=== PATIENT | male | born 1965 | race Caucasian/White ===

== ENCOUNTER 2018-12-03 05:45 | Day surgery (SDC) | payer OTHER ==
[~2018-12-03] VITALS: Ht 167.6 cm; Wt 90.7 kg
--- NOTE | ~2018-12-03 | OR ---
[facility] [address] [place], [place] [address] Draft DATE OF OPERATION: 12/03/2018 SURGEON: Solomon Harrison MD PREOPERATIVE DIAGNOSIS: Medial meniscal tear, right knee. POSTOPERATIVE DIAGNOSES: 1. Medial meniscal tear, right knee. 2. Chondral flap/fracture off the weightbearing portion of the medial femoral condyle. 3. Early calcium pyrophosphate deposition disease. PROCEDURE PERFORMED: Knee arthroscopy with a limited femoral chondroplasty and partial medial meniscectomy. ANESTHESIA: General. SPECIMENS/COMPLICATIONS: There were no specimens or complications. TOURNIQUET TIME: About 30 minutes. WHAT WAS DONE: The patient was taken to the operating room. After anesthesia was induced and airway secured, the patient was positioned, prepped and draped in a routine sterile fashion. The leg was exsanguinated with an Esmarch bandage. A pneumatic tourniquet was inflated to 300 mmHg pressure. The outflow cannula was placed, Super Roll laterally, and the arthroscope was placed through the standard anterolateral portal. Diagnostic arthroscopy of the suprapatellar pouch did not reveal any abnormalities. The patellofemoral joint had some mild cartilage staining of the articular cartilage. There were no other abnormalities noted. Examination of the medial recess was unremarkable. The medial compartment again showed some calcific deposits consistent with calcium pyrophosphate deposition disease. There was also a small flap tear of the posterior horn of the medial meniscus. Also noted was a large almost 8 x 6 mm full-thickness chondral flap that was dangling off the weightbearing portion of the lateral medial femoral condyle. The intercondylar notch was unremarkable, as was the lateral compartment and the lateral recess. We returned PATIENT NAME: AMAN VELEZ OPERATIVE REPORT DATE OF : 61 REPORT #: [id number] PHYSICIAN: SOLOMON HARRISON MD PCP: AMALIA FLORES REPORT IS CONFIDENTIAL AND NOT TO BE RELEASED WITHOUT AUTHORIZATION [facility] [address] [place] [id number] Draft the scope to the medial compartment and created an anteromedial portal using transillumination and localization with a spinal needle. A probe was passed. Confirmatory diagnostic arthroscopy did not reveal any additional diagnoses. We then introduced a basket forceps and completed the tear of the medial meniscus and delivered the fragment out of the knee. We then copiously irrigated the knee and then used the motorized shaver to debride and contour the edges of the meniscectomy. We then used the shaver to do an extremely limited debridement of the unstable fragments of the articular cartilage flap, leaving the rest of it in place. The knee was then copiously irrigated and drained, the portals closed, and a sterile dressing applied. The patient was awakened, taken to recovery room where he arrived in stable condition. Counts were correct and antibiotic protocols were followed. MD NIHARIKA CantuB/MODL /[id number] Copies: ~ PATIENT NAME: AMAN VELEZ ALAN OPERATIVE REPORT DATE OF : 61 REPORT #: [id number] PHYSICIAN: SOLOMON HARRISON MD PCP: AMALIA FLORES REPORT IS CONFIDENTIAL AND NOT TO BE RELEASED WITHOUT AUTHORIZATION
[~2018-12-03 05:45] MED LIST: ALEVE220 MG PO; ASPIRIN EC81 MG PO; LIPITOR40 MG PO; LISINOPRIL-HCT1 EACH PO; MULTI VITAMIN1 EACH PO; NORCO 5-325 TA1 EACH PO; PRAVASTATIN SOD40 MG PO; PRILOSEC20 MG PO
--- NOTE | 2018-12-03 07:59 | NUR ---
12/03/18 0759 [address] 0756 PATIENT ARRIVES TO PACU UNRESPONSIVE TO PAIN, ORAL AIRWAY IN PLACE. RESP EVEN AND UNLABORED, MASK AT 6 LITERS.
--- NOTE | 2018-12-03 08:06 | NUR ---
PT ALERT, ORIENTED AND SUPPORTED BY HIS . PT SEEMED ALITTLE ANXIOUS AND MENTIONED THAT HE HAD QUESTIONS FOR DR HUERTA WHEN HE COMES IN. EXPLAINED THE SCHEDULE FOR TODAY BUDDY RUBIN CAME IN TO GIVE MEDS. PT REQUESTED PRAYER, WILL CONTINUE TO FOLLOW NEEDED
--- NOTE | 2018-12-03 08:41 | NUR ---
PT ARRIVES TO DS TREATMENT ROOM FROM PACU AWAKE, A&O X3. PT RESP EVEN AND UNLABORED, SATS ABOVE 94% ON RA. PT DENIES NAUSEA BUT RATES PAIN 4/10 AND STATES, "I DON'T LIKE TO TAKE PAIN MEDICATION, BUT IT SEEMS TO BE GETTING WORSE." PT EDUCATED REGARDING PAIN MANAGEMENT. PT SPOUSE AT BEDSIDE, CALL LIGHT WITHIN REACH. PT PROVIDED ICED WATER AND COFFEE PER REQUEST.
[2018-12-03] MEDS ORDERED: ULTRAM50 MG PO (09:15)
--- NOTE | 2018-12-03 09:58 | NUR ---
LE 0850: PT TOLERATES PO WELL, PROVIDED JELLO, PUDDING AND CRACKERS. PT SPOUSE PROVIDED COFFEE. 0945: PT CONT TO HAVE 4/10 PAIN IN LEFT KNEE AND STATES, "IT FEELS REALLY DEEP, LIKE BONE PAIN." PT PROVIDED CHICKEN NOODLE SOUP. PT AGREES TO USE CALL LIGHT WHEN FEELS URGE TO VOID.
--- NOTE | 2018-12-03 11:04 | NUR ---
1030: PT CONT TO REST IN BED WATCHING TV. PT STATES PAIN 1/10 AND IS PROVIDED MORE COFFEE AND WATER. PT AGREES TO USE CALL LIGHT WHEN READY TO GET UP AND USE BATHROOM. REMAINS AT BEDSIDE, CALL LIGHT WITHIN REACH.
--- NOTE | 2018-12-03 11:07 | NUR ---
1050: PT STATES THAT HE DOES NOT THINK THAT TRAMADOL IS EFFECTIVE MANAGING HIS PAIN AND REQUESTS NORCO 5/[address] HUERTA NOTIFIED AND DENIES REQUEST AND STATES TO HAVE PT "CONTINUE TAKING NAPROSYN 2 TABS Q6H PRN PAIN." INFORMATION RELAYED TO PT, PT ACCEPTS NEW ORDER AND ALSO ASKS ABOUT TYLENOL.
--- NOTE | 2018-12-03 12:30 | NUR ---
[id number]: PT REQUESTS TO SIT AT SIDE OF BED FOR A FEW MINUTES, DENIES ANY NAUSEA AND STATES "A LITTLE DIZZINESS." PT PROVIDED WALKER AND AMBULATES DOWN DS HALLWAY WITH RN AND SPOUSE ASSIST. PT BACK IN ROOM AND TO BATHROOM. PT ABLE TO VOID 200 MLS NICOLASA COLORED URINE WITH NO PROBLEMS. DC CRITERIA MET AT THIS TIME AND PT DRESSES SELF WITH SPOUSE IN ROOM. DC INSTRUCTIONS GIVEN IN PRESENCE OF PT AND SPOUSE, ALL QUESTIONS ADDRESSED. PT SPOUSE GIVEN DC INSTRUCTIONS WITH PAIN SCRIPT. PT REQUESTS TO "BORROW WALKER AND GO DOWNSTAIRS TO HAVE LUNCH WITH AT CAFETERIA." RN WALKS WITH PT AND SPOUSE TO [place]FETERIA WITH USE OF ELEVATOR. PT WILL RETURN WALKER WHEN FINISHED WITH LUNCH.
== END 2018-12-03 12:10 | disposition home or self-care (01) ==
LOC: OPS 05:45 → DS 05:45 → OPS 08:45 → DS 09:15 → OPS 09:15
PROVIDERS: Orthopaedic Surgery
PROC: 0SBD4ZZ Excision of Left Knee Joint, Percutaneous Endoscopic Approach (ICD-10-PCS; principal; 2018-12-03 08:45)
DX: S83.242A Other tear of medial meniscus, current injury, left knee, initial encounter (principal); M11.861 Other specified crystal arthropathies, right knee; I10 Essential (primary) hypertension; Z91.041 Radiographic dye allergy status; Z79.82 Long term (current) use of aspirin; Z79.899 Other long term (current) drug therapy; Z88.6 Allergy status to analgesic agent; X50.1XXA Overexertion from prolonged static or awkward postures, initial encounter; Y99.0 Civilian activity done for income or pay
CPT/HCPCS: 01400; J0690; J1100; J1885; J2250; J2405; J2704; J7120

== ENCOUNTER 2018-12-06 15:30 | Emergency (ER) | payer OTHER ==
[~2018-12-06] VITALS: Ht 167.6 cm; Wt 90.7 kg
--- OUTSIDE RECORDS SUMMARY | ~2018-12-06 | XMS | Clinical Summary ---
Demographics + + + | Address | [address] | | | [place] [address] | + + + | Home Phone | | + + + | Preferred Language | Unknown | + + + | Marital Status | | + + + | Restorationist Affiliation | UNK | + + + | Race | White | + + + | Ethnic Group | Not or | + + + Author + + + | Author | NON REVENUE LOCATIONS | + + + | Organization | NON REVENUE LOCATIONS | + + + | Address | Unknown | + + + | Phone | Unavailable | + + + Support + + + + + | Name | Relationship | Address | Phone | + + + + + | NELLI VELEZ | ECON | [address] | | | | | [place] | | | | | [address] | | + + + + + Care Team Providers + +------+ + | Care Tractor Trailer Mechanic Name | Role | Phone | + +------+ + PP | Unavailable | + +------+ + Source Comments BRAD is fully live on both EpicCare Ambulatory and EpicCare InPatient.[facility] Allergies + + + + + + | Active Allergy | Reactions | Severity | Noted | Comments | | | | | Date | | + + + + + + | Sulfur | | | 04/09/20 | Childhood reaction | | | | | 9 | | + + + + + + Current Medications + + +-------+---------+------+------+-------+ | Prescription | Sig. | Disp. | Refills | Star | End | Statu | | | | | | t | Date | s | | | | | | Date | | | + + +-------+---------+------+------+-------+ | | Take 1 Tab by mouth | | | | | Activ | | lisinopril-hydrochlo | once daily. | | | | | e | | rothiazide 20-12.5 | | | | | | | | mg Oral Tablet | | | | | | | + + +-------+---------+------+------+-------+ | pravastatin 40 mg | Take 40 mg by mouth | | | | | Activ | | Oral Tablet | once daily. | | | | | e | + + +-------+---------+------+------+-------+ | metoclopramide 5 | Take 5 mg by mouth | | | | | Activ | | mg Oral Tablet | once daily. | | | | | e | + + +-------+---------+------+------+-------+ | Aluminum | Take by mouth. | | | | | Activ | | Hydrox-Magnesium | | | | | | e | | Carb (GAVISCON EXTRA | | | | | | | | STRENGTH) 160-105 | | | | | | | | mg Oral Tablet, | | | | | | | | Chewable | | | | | | | + + +-------+---------+------+------+-------+ | naproxen sodium | Take 1-2 Caps by | | | | | Activ | | (ALEVE) 220 mg Oral | mouth as needed. | | | | | e | | Capsule | | | | | | | + + +-------+---------+------+------+-------+ | | Take 1 Tab by mouth | | | | | Activ | | MULTIVITS-MINERALS/F | once daily. | | | | | e | | A/LYCOPENE (MEN'S | | | | | | | | DAILY | | | | | | | | MULTIVIT-MINERAL | | | | | | | | ORAL) | | | | | | | + + +-------+---------+------+------+-------+ Active Problems Not on file Family History + + +------+ + | Medical History | Relation | Name | Comments | + + +------+ + | Hypertension | Father | | | + + +------+ + | Lipid Disorder | Father | | High cholesterol | + + +------+ + | Diabetes | Mother | | | + + +------+ + | Hypertension | Mother | | | + + +------+ + | Lipid Disorder | Mother | | High cholesterol | + + +------+ + + +------+--------+ + | Relation | Name | Status | Comments | + +------+--------+ + | Father | | | | + +------+--------+ + | Mother | | | | + +------+--------+ + Social History + +-------+ +--------+ + | Tobacco Use | Types | Packs/Day | Years | Date | | | | | Used | | + +-------+ +--------+ + | Former Smoker | | | 30 | Quit: 08/04/2010 | + +-------+ +--------+ + + +---+---+---+ | Smokeless Tobacco: | | | | | Never Used | | | | + +---+---+---+ + + +---------+ + | Alcohol Use | Drinks/We | oz/Week | Comments | | | ek | | | + + +---------+ + | No | | | | + + +---------+ + + + + | Sex Assigned at | Date Recorded | | | | + + + | Not on file | | + + + Last Filed Vital Signs + + + + | Vital Sign | Reading | Time Taken | + + + + | Blood Pressure | 124/86 | 05/15/2011 12:56 PM PDT | + + + + | Pulse | 66 | 05/15/2011 12:56 PM PDT | + + + + | Temperature | 36.4 C (97.5 F) | 05/15/2011 11:00 AM PDT | + + + + | Respiratory Rate | 16 | 05/15/2011 12:56 PM PDT | + + + + | Oxygen Saturation | 97% | 05/15/2011 12:56 PM PDT | + + + + | Inhaled Oxygen | - | - | | Concentration | | | + + + + | Weight | 79.4 kg (175 lb) | 05/15/2011 11:09 AM PDT | + + + + | Height | 167.6 cm (5' 6") | 04/09/2011 2:31 PM PDT | + + + + | Body Mass Index | 28.25 | 05/15/2011 11:09 AM PDT | + + + + Plan of Treatment + + + + + | Health Maintenance | Due Date | Last Done | Comments | + + + + + | Influenza (Flu) | | | | | vaccination (#1) | 8 | | | + + + + + Results Not on filefrom Last 3 Months
--- OUTSIDE RECORDS SUMMARY | ~2018-12-06 | XMS | Clinical Summary ---
Demographics + + + | Address | [address] | | | [place] [address] | + + + | Home Phone | | + + + | Preferred Language | Unknown | + + + | Marital Status | | + + + | Pentecostal Affiliation | UNK | + + + [...] [place] | | | | | [id number] | | + + + + + Care Team Providers + +------+ + | Care Aircraft Fuselage Framer Name | Role | Phone | + +------+ + PP | Unavailable | + +------+ + Source Comments BRAD is fully live on both EpicCare Ambulatory and EpicCare InPatient.[facility] [place] Allergies + + + + + + [...]
[~2018-12-06 15:30] MED LIST changes: +ULTRAM50 MG PO
== END 2018-12-06 16:40 | disposition home or self-care (01) ==
LOC: ED 15:30
DX: M96.840 Postprocedural hematoma of a musculoskeletal structure following a musculoskeletal system procedure (principal); I10 Essential (primary) hypertension; E78.00 Pure hypercholesterolemia, unspecified; Z87.891 Personal history of nicotine dependence; Z88.2 Allergy status to sulfonamides; Z88.6 Allergy status to analgesic agent; Z91.040 Latex allergy status; Z91.048 Other nonmedicinal substance allergy status; Z79.82 Long term (current) use of aspirin; Z79.899 Other long term (current) drug therapy
CPT/HCPCS: 99283

== ENCOUNTER 2025-02-07 15:47 | Emergency (ER) | payer OTHER ==
[~2025-02-07] VITALS: Ht 167.6 cm; Wt 101.1 kg
[~2025-02-07 15:47] MED LIST changes: +DICLOFENAC SODI75 MG PO
[2025-02-07] MEDS ORDERED: ASPIRIN 81 MG CHEW PO ONE (16:00)
[2025-02-07 16:01] LABS: BASOPHILS 0.6 % (0.2-1.2); EOSINOPHILS 3.0 % (0.8-7.0); LYMPHOCYTES 24.8 % (21.8-53.1); MCH 31.3 PG (25.7-32.2); MCHC 34.5 g/dL (32.3-36.5); MCV 90.7 fL (79.0-92.2); MONOCYTES 8.5 % (5.3-12.2); NEUTROPHILS 62.9 % (34.0-67.9); RBC 4.51 M/uL (4.63-6.08)
[2025-02-07] MEDS ORDERED: METOPROLOL SUCC25 MG PO (16:04)
[2025-02-07 16:20] LABS: ALT (SGPT) 60.0 U/L (14-59); AST (SGOT) 29.0 U/L (15-37); GLOMERULAR FILTRATION RATE,EST 50.0 mL/min (>60); PROTEIN, TOTAL 7.8 g/dL (6.4-8.2); UREA NITROGEN 23.0 mg/dL (7-18)
[2025-02-07] MEDS ORDERED: MAGNESIUM SULFATE 2 GM/50 ML BAG IV ONE (16:30)
[2025-02-07 19:25] VITALS: BP 160/93
--- NOTE | 2025-02-07 22:11 | EKG ---
[facility] [address] [place] [address] Signed Normal sinus rhythm Left bundle branch block Abnormal ECG When compared with ECG of 02-DEC-2018 16:25, Questionable change in QRS axis T wave inversion no longer evident in Inferior leads Confirmed by Ludmila Garcia MD () on 02/07/2025 10:11:12 PM Electronically Signed By: LUDMILA GARCIA MD 02/07/252210 PATIENT NAME: ROSIEAMAN KYRA Electrocardiogram DATE OF : 61 PHYSICIAN: LUDMILA GARCIA MD REPORT #: [id number] REPORT IS CONFIDENTIAL AND NOT TO BE RELEASED WITHOUT AUTHORIZATION
== END 2025-02-07 19:25 | disposition home or self-care (01) ==
LOC: ED 15:47
PROVIDERS: Emergency Medicine
DX: R06.02 Shortness of breath (principal); Z88.2 Allergy status to sulfonamides; Z91.040 Latex allergy status; Z91.041 Radiographic dye allergy status; Z79.82 Long term (current) use of aspirin; Z79.899 Other long term (current) drug therapy
CPT/HCPCS: 36415; 71045; 71260; 80053; 83735; 83880; 84484; 85025; 93005; 93010; 99285-25; A9270; J3475

== ENCOUNTER 2025-05-10 16:19 | Emergency (ER) | payer OTHER ==
[~2025-05-10] VITALS: Ht 167.6 cm; Wt 108.3 kg
[~2025-05-10 16:19] MED LIST changes: +METOPROLOL SUCC25 MG PO
[2025-05-10] MEDS ORDERED: NITROGLYCERIN 0.4 MG SUBL SL PRN (16:30)
[2025-05-10] MEDS ORDERED: ENTRESTO 24 MG1 EACH PO (16:33)
[2025-05-10] MEDS ORDERED: SPIRONOLACTONE25 MG PO (16:33)
[2025-05-10] MEDS ORDERED: NITROGLYCERIN0.4 MG SL (16:33)
[2025-05-10 16:35] LABS: BASOPHILS 0.5 % (0.2-1.2); EOSINOPHILS 2.1 % (0.8-7.0); LYMPHOCYTES 19.2 % (21.8-53.1); MCH 31.6 PG (25.7-32.2); MCHC 34.9 g/dL (32.3-36.5); MCV 90.6 fL (79.0-92.2); MONOCYTES 8.8 % (5.3-12.2); NEUTROPHILS 69.2 % (34.0-67.9); RBC 4.59 M/uL (4.63-6.08)
[2025-05-10] MEDS ORDERED: ASPIRIN 81 MG CHEW PO ONE (16:45)
[2025-05-10 16:58] LABS: ALT (SGPT) 44.0 U/L (14-59); AST (SGOT) 26.0 U/L (15-37); GLOMERULAR FILTRATION RATE,EST 59.0 mL/min (>60); PROTEIN, TOTAL 7.4 g/dL (6.4-8.2); UREA NITROGEN 17.0 mg/dL (7-18)
[2025-05-10] MEDS ORDERED: ANORO ELLIPTA1 EACH INH (17:28)
[2025-05-10] MEDS ORDERED: MAGNESIUM250 M1 PO (17:29)
[2025-05-10] MEDS ORDERED: MAGNESIUM SULFATE 2 GM/50 ML BAG IV ONE (17:30)
[2025-05-10 18:35] VITALS: BP 160/92
--- NOTE | 2025-05-10 21:49 | EKG ---
[facility] [address] [place] [address] Signed Normal sinus rhythm Left bundle branch block Abnormal ECG When compared with ECG of 07-FEB-2025 15:46, No significant change was found Confirmed by Ludmila Garcia MD () on 05/10/2025 9:49:12 PM Electronically Signed By: LUDMILA GARCIA MD 05/10/25 2149 PATIENT NAME: AMAN VELEZ Electrocardiogram DATE OF : 61 PHYSICIAN: LUDMILA GARCIA MD REPORT #: [id number] REPORT IS CONFIDENTIAL AND NOT TO BE RELEASED WITHOUT AUTHORIZATION
== END 2025-05-10 18:35 | disposition home or self-care (01) ==
LOC: ED 16:19
PROVIDERS: Emergency Medicine
DX: R07.9 Chest pain, unspecified (principal); R06.00 Dyspnea, unspecified; E83.42 Hypomagnesemia; I10 Essential (primary) hypertension; E78.00 Pure hypercholesterolemia, unspecified; Z88.2 Allergy status to sulfonamides; Z91.040 Latex allergy status; Z88.6 Allergy status to analgesic agent; Z91.041 Radiographic dye allergy status; Z79.82 Long term (current) use of aspirin; Z79.899 Other long term (current) drug therapy
CPT/HCPCS: 36415; 71045; 80053; 83735; 84484; 85025; 93005; 93010; 96374; 99285-25; A9270; J3475